=== PATIENT | female | born 1975 | race Caucasian/White ===

== ENCOUNTER 2017-04-14 11:29 | Emergency (ER) | payer BC ==
--- NOTE | 2017-04-14 11:34 | UC ---
Complaint Female HPI - HPI Summary HPI Summary: 41 FEMALE PRESENTS WITH COMPLAINS OF CRAMPS AND RIGHT CVA TENDERNESS, - History Of Current Complaint Stated Complaint: URINARY COMPLAINT-23 WKS PREG Time Seen by Provider: 04/14/17 11:33 - Allergies/Home Medications Allergies/Adverse Reactions: Allergies Allergy/AdvReac Type Severity Reaction Status Date / Time No Known Allergies Allergy Verified 04/14/17 11:42 Home Medications: Home Medications Docosahexaenoic Acid [ Dha] 200 mg PO DAILY 04/14/17 [History Confirmed 04/14/17] Review of Systems Constitutional: Negative Skin: Negative Eyes: Negative ENT: Negative Respiratory: Negative Cardiovascular: Negative Gastrointestinal: Negative Genitourinary: Dysuria, Frequency, Urgency Motor: Negative Neurovascular: Negative Musculoskeletal: Negative Neurological: Negative Psychological: Negative All Other Systems Reviewed And Are Negative: Yes Physical Exam Triage Information Reviewed: Yes Eye Exam: Normal ENT Exam: Normal Dental Exam: Normal Neck exam: Normal Neck: Positive: 1 Respiratory Exam: Normal Cardiovascular Exam: Normal Abdomen Description: Positive: CVA Tenderness (R) Musculoskeletal Exam: Normal Neurological Exam: Normal Psychological Exam: Normal Skin Exam: Normal Complaint Female Dx - Differential Dx/Diagnosis Provider Diagnoses: SUPRAPUBIC PAIN. RIGTH CVA TENDERNESS Discharge - Discharge Plan Condition: Stable Disposition: HOME Prescriptions: Cephalexin CAP* [Keflex CAP*] 500 mg PO TID #21 cap Patient Education Materials: Urinary Tract Infection in Women (ED), Urinary Tract Infection in (ED) Referrals: Non Staff,Doctor [Medical Doctor] -
[2017-04-14 11:42] VITALS: BP 114/63
--- NOTE | 2017-04-16 07:19 | UC ---
Progress - Progress Note Progress Note: Notify culture negative stop the antibiotic.
== END 2017-04-14 12:10 | disposition home or self-care (01) ==
LOC: UCCORT 11:29
DX: O99.89 Other specified diseases and conditions complicating pregnancy, childbirth and the puerperium (principal); R10.2 Pelvic and perineal pain; Z3A.23 23 weeks gestation of pregnancy
CPT/HCPCS: 81003; 87086; 99212; G0463

== ENCOUNTER 2017-07-27 00:01 | Inpatient (IN) | payer BC ==
[2017-07-27] MEDS ORDERED: Oxytocin in LR* 20 UNITS/1,000 ML BAG IVPB SCH ×2 (01:00→11:00)
[2017-07-27] MEDS ORDERED: Oxytocin in LR* 20 UNITS/1,000 ML BAG IVPB ONE (01:05)
[2017-07-27] MEDS ORDERED: OBEPIDURAL* 250 ML ONE (05:28)
[2017-07-27] MEDS ORDERED: Sodium Citrate/Citric Acid* 15 ML UDC PO PRN (06:09)
[2017-07-27] MEDS ORDERED: Phenylephrine IV* 40 MCG/ML 10 ML SYRINGE IV PUSH PRN ×2 (06:09)
[2017-07-27] MEDS ORDERED: Famotidine TAB* 20 MG PO PRN (06:09)
[2017-07-27] MEDS ORDERED: OBEPIDURAL* 250 ML EPIDURAL SCH (07:00)
[2017-07-27] MEDS ORDERED: Glycerin ADULT SUPP PR PRN (10:19)
[2017-07-27] MEDS ORDERED: Acetaminophen TAB* 325 MG PO PRN (10:19)
[2017-07-27] MEDS ORDERED: Dibucaine 1% 28.35 GM TUBE PR PRN (10:19)
[2017-07-27] MEDS ORDERED: Witch Hazel PAD* JAR TOPICAL PRN (10:19)
[2017-07-27] MEDS ORDERED: Tetan/Diph/Pertus SYR(Tdap)* 0.5 ML SYR(BOOSTRIX) use SYR IM ONE (10:19)
[2017-07-27] MEDS ORDERED: Ibuprofen TAB* 600 MG PO PRN (10:19)
[2017-07-27] MEDS ORDERED: Simethicone TAB* 80 MG TAB.CHEW PO SCH (12:30)
[2017-07-27] MEDS: Docusate CAP* 100 MG PO SCH (13:52)
[2017-07-28 06:40] LABS: Hematocrit 28 % (35-47); Hemoglobin 9.6 g/dl (12.0-16.0); Mean Corpuscular HGB Conc 34 g/dl (31-36); Mean Corpuscular Hemoglobin 33 pg (27-31); Mean Corpuscular Volume 96 fL (80-97); Mean Platelet Volume 9 um3 (7.4-10.4); Red Blood Count 2.95 10^6/ul (4.0-5.4); Red Cell Distribution Width 13 % (10.5-15); White Blood Count 18.9 10^3/ul (3.5-10.8)
[2017-07-28] MEDS: Docusate CAP* 100 MG PO SCH ×4 (08:20→21:45)
[2017-07-28] MEDS: Ferrous Gluconate TAB* 324 MG TAB PO SCH ×2 (08:21→21:44)
[2017-07-29 08:42] VITALS: BP 138/96
[2017-07-29] MEDS: Ferrous Gluconate TAB* 324 MG TAB PO SCH (09:04)
[2017-07-29] MEDS: Docusate CAP* 100 MG PO SCH (09:04)
== END 2017-07-29 12:36 | disposition home or self-care (01) | DRG 560 ==
LOC: MCHOBOUT 00:01 → MCHOB 00:30
PROVIDERS: ADMIT Obstetrics & Gynecology; ATTEND Obstetrics & Gynecology
PROC: 10E0XZZ Delivery of Products of Conception, External Approach (ICD-10-PCS; principal; 2017-07-27)
PROC: 0KQM0ZZ Repair Perineum Muscle, Open Approach (ICD-10-PCS; 2017-07-27)
PROC: 4A1HXCZ Monitoring of Products of Conception, Cardiac Rate, External Approach (ICD-10-PCS; 2017-07-27)
DX: O42.12 Full-term premature rupture of membranes, onset of labor more than 24 hours following rupture (principal); O70.1 Second degree perineal laceration during delivery; O75.81 Maternal exhaustion complicating labor and delivery; Z3A.37 37 weeks gestation of pregnancy; Z37.0 Single live birth; O90.81 Anemia of the puerperium
CPT/HCPCS: 36415; 85025; 86850; 86900; 86901; A9270-GY